=== PATIENT | female | born 1965 | race Caucasian/White ===

== ENCOUNTER 2018-12-16 08:15 | Day surgery (SDC) | payer MEDICAID ==
[2018-12-16] VITALS (9 sets, daily range): BP systolic 110–166; BP diastolic 64–75
[~2018-12-16] VITALS: Ht 163.8 cm; Wt 79.0 kg
[~2018-12-16 08:15] MED LIST: NO HOME MEDS
[2018-12-16] MEDS ORDERED: ceFAZolin 2gm in dextrose, iso 100 ML IV ONE (08:55)
[2018-12-16] MEDS ORDERED: famotidine 20mg tablet PO ONE (09:00)
[2018-12-16] MEDS ORDERED: ringers solution, lacted 1,000 ML IV SCH (09:00)
[2018-12-16 09:27] LABS: BASOPHILS % (AUTO) 0.5 % (0-1); EOSINOPHILS # (AUTO) 0.3 X10'3 (0-0.9); EOSINOPHILS % (AUTO) 5.2 % (0-6); LYMPHOCYTES # (AUTO) 2.1 X10'3 (1.1-4.8); LYMPHOCYTES % (AUTO) 33.1 % (21-51); MEAN CORPUSCULAR HEMOGLOBIN 29.2 PG (27.0-31.0); MEAN CORPUSCULAR HGB CONC 33.6 g/dL (33.0-36.5); MEAN CORPUSCULAR VOLUME 86.9 FL (78-98); MEAN PLATELET VOLUME 7.2 FL (7.4-10.4); MONOCYTES # (AUTO) 0.4 X10'3 (0-0.9); MONOCYTES % (AUTO) 6.2 % (2-12); NEUTROPHILS # (AUTO) 3.5 X10'3 (1.8-7.7); PRE OP HEMATOCRIT 40.2 % (35.0-45.0); PRE OP HEMOGLOBIN 13.5 g/dL (12.0-16.0); PRE OP PLATELET COUNT 292 X10'3 (140-440); RED BLOOD COUNT 4.62 X10'6 (4.20-5.60); RED CELL DISTRIBUTION WIDTH 14.1 % (11.5-14.5)
[2018-12-16] MEDS ORDERED: LURA80TA3 PO (09:34)
[2018-12-16] MEDS ORDERED: TRAZ-219 PO (09:34)
[2018-12-16 09:41] LABS: ALBUMIN 3.3 G/DL (3.4-5.0); ALBUMIN/GLOBULIN RATIO 0.8 (1.1-1.5); ALKALINE PHOSPHATASE 75 IU/L (46-116); BLOOD UREA NITROGEN 14 MG/DL (7-18); BUN/CREATININE RATIO 12.2 (6.6-38.0); CALCIUM 8.9 MG/DL (8.5-10.1); CHLORIDE 106 MMOL/L (99-107); CREATININE 1.15 MG/DL (0.40-0.90); PRE OP ALT 18 U/L (30-65); PRE OP ANION GAP 8 (8-16); PRE OP AST 10 U/L (10-37); PRE OP BILIRUB, TOTAL 0.5 MG/DL (0.0-1.0); PRE OP GLUCOSE 97 MG/DL (70-104); PRE OP POTASSIUM 3.9 MMOL/L (3.4-5.1); PRE OP SODIUM 142 MMOL/L (135-145); TOTAL CARBON DIOXIDE 28.3 MMOL/L (24-32); TOTAL PROTEIN 7.6 G/DL (6.4-8.2); eGFR 50 ML/MIN
[2018-12-16 09:45] LABS: PRE OP PROTIME 10.1 SECONDS (9.0-12.0)
[2018-12-16 12:06] LABS: CLARITY,URINE CLOUDY (Clear); COLOR,URINE YELLOW (Yellow); GLUCOSE, URINE NEGATIVE (Neg); KETONES,URINE NEGATIVE (Neg); LEUKOCYTE ESTERASE ,URINE NEGATIVE (Neg); NITRITES, URINE NEGATIVE (Neg); OCCULT BLOOD,URINE NEGATIVE (Neg); PH,URINE 5.5 (4.8-8.0); PROTEIN,URINE NEGATIVE (Neg); UROBILINOGEN,URINE 0.2 E.U/dL (0.2-1.0)
[2018-12-16 12:10] LABS: UA COLLECTION TYPE CLN CATCH MIDSTREAM
[2018-12-16 12:12] LABS: MUCUS STRANDS FEW /LPF (Neg); SQUAMOUS EPITHELIAL CELL,UR MANY /LPF (FEW)
[2018-12-16 12:18] LABS: BACTERIA,URINE FEW /HPF (Neg)
[2018-12-16 12:19] LABS: YEAST MODERATE /HPF (NEGATIVE)
[2018-12-16 12:21] LABS: RBC,URINE NONE SEEN /HPF (0-2); WBC,URINE 0-4 /HPF (0-4)
[2018-12-16] MEDS ORDERED: sevoflurane 250ml liquid IH ONE (13:00)
[2018-12-16] MEDS ORDERED: midazolam 2 mg/2 ml injection ONE (13:03)
[2018-12-16] MEDS ORDERED: fentaNYL /PF 50mcg/ml 5ml ampule ONE (13:03)
[2018-12-16] MEDS ORDERED: BUPIVAcaine/PF 2.5 mg/ml (0.25%) 30ml vial ONE (13:14)
[2018-12-16] MEDS ORDERED: gentamicin 40 MG/1 ML inj ONE (13:30)
[2018-12-16] MEDS ORDERED: clindamycin phosphate 150mg/ml inj. ONE (13:32)
--- NOTE | 2018-12-16 13:53 | NUR ---
Received from OR via [facility], accompanied by Anesthesiologist DR CASTLE and report given by Anesthesiologist. PT DROWSY, NO S/S OF DISTRESS/DISCOMFORT, ABDOMEN W/ISLAND DRSG COVERING INCISION CDI, SIRISHA TO BULB SUCTION, SMALL AMT OF S/S DRAINAGE. Addendum: 12/16/18 at 1435 by Aimee Coleman RN Amended: Links added.
[2018-12-16] MEDS ORDERED: LIDOcaine 2% (20mg/ml) 5ml vial ONE (14:09)
[2018-12-16] MEDS ORDERED: ondansetron/PF 4mg/2ml inj ONE (14:09)
[2018-12-16] MEDS ORDERED: ePHEDrine 50MG/ML INJ. ONE (14:09)
[2018-12-16] MEDS ORDERED: propofol inj 20 ML IV ONE (14:09)
[2018-12-16] MEDS ORDERED: dexamethasone sod phosphate 4mg/ml inj. ONE (14:09)
--- NOTE | 2018-12-16 15:13 | NUR ---
D/C INSTRUCTIONS GIVEN AND GONE OVER W/PT AND PTS FATHER, BOTH VERBALIZE UNDERSTANDING, PT DC/D TO HOME VIA W/C TO PRIVATE VEHICLE W/O INCIDENT. Addendum: 12/16/18 at 1650 by Aimee Coleman RN Amended: Links added.
== END 2018-12-16 15:13 | disposition home or self-care (01) ==
LOC: PAS 08:15
PROVIDERS: ATTEND Surgery
DX: T81.30XA Disruption of wound, unspecified, initial encounter (principal); Y83.8 Other surgical procedures as the cause of abnormal reaction of the patient, or of later complication, without mention of misadventure at the time of the procedure; Y92.89 Other specified places as the place of occurrence of the external cause; Z88.8 Allergy status to other drugs, medicaments and biological substances; F41.9 Anxiety disorder, unspecified; F32.9 Major depressive disorder, single episode, unspecified; Z85.038 Personal history of other malignant neoplasm of large intestine; Z87.891 Personal history of nicotine dependence; Z90.49 Acquired absence of other specified parts of digestive tract; Z86.19 Personal history of other infectious and parasitic diseases; Z79.899 Other long term (current) drug therapy; Z79.01 Long term (current) use of anticoagulants
CPT/HCPCS: 13160; 36415; 71045; 80053; 81001; 85025; 85610; 85730; 87070; 87075; 87077; 87186; 93005; J1100; J1580; J2001; J2250; J2405; J2704; J3010; J3490; A4618; A6449; A7000; J7120

== ENCOUNTER 2021-07-17 05:47 | Inpatient (IN) | payer MEDICAID ==
[2021-07-13 15:38] LABS: BASOPHILS # (AUTO) 0.1 X10'3 (0-0.2); BASOPHILS % (AUTO) 0.7 % (0-1); EOSINOPHILS # (AUTO) 0.2 X10'3 (0-0.9); EOSINOPHILS % (AUTO) 2.2 % (0-6); LYMPHOCYTES # (AUTO) 3.4 X10'3 (1.1-4.8); LYMPHOCYTES % (AUTO) 39.5 % (21-51); MEAN CORPUSCULAR HEMOGLOBIN 30.1 PG (27.0-31.0); MEAN CORPUSCULAR HGB CONC 33.9 g/dL (33.0-36.5); MEAN CORPUSCULAR VOLUME 88.9 FL (78-98); MEAN PLATELET VOLUME 7.1 FL (7.4-10.4); MONOCYTES # (AUTO) 0.5 X10'3 (0-0.9); MONOCYTES % (AUTO) 5.8 % (2-12); NEUTROPHILS # (AUTO) 4.4 X10'3 (1.8-7.7); NEUTROPHILS % (AUTO) 51.8 % (42-75); PRE OP HEMATOCRIT 42.8 % (35.0-45.0); PRE OP HEMOGLOBIN 14.5 g/dL (12.0-16.0); PRE OP PLATELET COUNT 348 X10'3 (140-440); RED BLOOD COUNT 4.81 X10'6 (4.20-5.60)
[2021-07-13 15:39] LABS: CLARITY,URINE SLIGHTLY CLOUDY (Clear); COLOR,URINE YELLOW (Yellow); GLUCOSE, URINE NEGATIVE (Neg); KETONES,URINE NEGATIVE (Neg); LEUKOCYTE ESTERASE ,URINE NEGATIVE (Neg); NITRITES, URINE NEGATIVE (Neg); OCCULT BLOOD,URINE NEGATIVE (Neg); PROTEIN,URINE NEGATIVE (Neg); UROBILINOGEN,URINE 0.2 E.U/dL (0.2-1.0)
[2021-07-13 15:45] LABS: UA COLLECTION TYPE CLN CATCH MIDSTREAM
[2021-07-13 15:48] LABS: BACTERIA,URINE 3+ /HPF (Neg); CAL OXALATE CRYSTALS 2+ /HPF (NEGATIVE); RBC,URINE NONE SEEN /HPF (0-2); SQUAMOUS EPITHELIAL CELL,UR MANY /LPF (FEW); WBC,URINE 30-50 /HPF (0-4)
[2021-07-13 15:49] LABS: MUCUS STRANDS NONE SEEN /LPF (Neg)
[2021-07-13 15:50] LABS: PRE OP PROTIME 10.1 SECONDS (9.0-12.0)
[2021-07-13 15:53] LABS: ALBUMIN 3.4 G/DL (3.4-5.0); ALBUMIN/GLOBULIN RATIO 0.8 (1.1-1.5); ALKALINE PHOSPHATASE 87 IU/L (46-116); BLOOD UREA NITROGEN 14 MG/DL (7-18); BUN/CREATININE RATIO 13.9 (6.6-38.0); CALCIUM 8.9 MG/DL (8.5-10.1); CHLORIDE 103 MMOL/L (99-107); CREATININE 1.01 MG/DL (0.40-0.90); PRE OP ALT 31 U/L (30-65); PRE OP ANION GAP 9 (8-16); PRE OP AST 17 U/L (10-37); PRE OP BILIRUB, TOTAL 0.5 MG/DL (0.0-1.0); PRE OP GLUCOSE 85 MG/DL (70-104); PRE OP POTASSIUM 3.8 MMOL/L (3.4-5.1); PRE OP SODIUM 139 MMOL/L (135-145); TOTAL CARBON DIOXIDE 27.1 MMOL/L (24-32); TOTAL PROTEIN 7.8 G/DL (6.4-8.2); eGFR 57 ML/MIN
[2021-07-17] VITALS (24 sets, daily range): BP systolic 104–169; BP diastolic 47–120
[~2021-07-17] VITALS: Ht 165.1 cm; Wt 93.2 kg
[~2021-07-17 05:47] MED LIST changes: +CLON-330 PO; +LURA80TA2 PO; -NO HOME MEDS; +cefazolin/dext.iso 2gm/50ml IV ONE; +famotidine 20mg tablet PO ONE; +ringers solution, lacted 1,000 ML IV SCH
[2021-07-17] MEDS ORDERED: BUPIVAcaine 0.5% inj/PF 30 ML ONE (06:42)
[2021-07-17] MEDS ORDERED: INDOCYANINE GREEN 25 MG/10 ML VIAL IV ONE (07:20)
[2021-07-17] MEDS ORDERED: morphine 2 MG/ML inj. syringe IV PRN (07:50)
[2021-07-17] MEDS ORDERED: ondansetron/PF 4mg/2ml inj IV PRN ×2 (07:50→14:00)
[2021-07-17] MEDS ORDERED: labetalol 20mg/4ml (5mg/ml) syringe IV PRN (07:50)
[2021-07-17] MEDS ORDERED: hydrALAZINE 20mg/ml inj. IV PRN (07:50)
[2021-07-17] MEDS ORDERED: morphine 4 MG/ML inj SYRINge IV PRN (07:50)
[2021-07-17] MEDS ORDERED: meperidine/PF 25mg/ml syringe IV PRN ×2 (07:50)
[2021-07-17] MEDS ORDERED: acetaminophen 1,000mg/100ml IV 100 ML IV PRN (07:50)
[2021-07-17] MEDS ORDERED: proCHLORperazine 10 MG/2 ml inj IV PRN (07:50)
[2021-07-17] MEDS ORDERED: ringers solution, lacted 1,000 ML IV SCH (07:50)
[2021-07-17] MEDS ORDERED: sevoflurane 250ml liquid IH ONE (08:42)
[2021-07-17] MEDS ORDERED: midazolam 1 mg/ML 2ml injection ONE (08:47)
[2021-07-17] MEDS ORDERED: fentaNYL /PF 50mcg/ml 5ml ampule ONE (08:47)
[2021-07-17] MEDS ORDERED: LIDOcaine 2% (20mg/ml) 5ml vial ONE (09:09)
[2021-07-17] MEDS ORDERED: rocuronium 10mg/ml inj IV ONE ×2 (09:09→11:18)
[2021-07-17] MEDS ORDERED: propofol inj 20 ML IV ONE (09:09)
[2021-07-17] MEDS ORDERED: ePHEDrine 50MG/ML INJ. ONE (09:10)
[2021-07-17] MEDS ORDERED: dexamethasone sod phosphate 4mg/ml inj. ONE (09:20)
[2021-07-17] MEDS ORDERED: ondansetron/PF 4mg/2ml inj ONE (09:20)
[2021-07-17] MEDS ORDERED: morphine 4 MG/ML inj SYRINge ONE (12:19)
[2021-07-17] MEDS ORDERED: ceFAZolin 1000mg inj ONE (12:21)
[2021-07-17] MEDS ORDERED: sugammadex 200mg/2ml injection IV ONE (12:24)
--- NOTE | 2021-07-17 12:50 | NUR ---
Received from OR via [facility] , accompanied by Anesthesiologist DR ENGLISH and report given by Anesthesiolgist. PT PRESENTS WITH PIV 20G LEFT AC, VSS. Addendum: 07/17/21 at 1312 by Jaye Olsen RN, RN Amended: Links added.
[2021-07-17] MEDS: meperidine/PF 25mg/ml syringe IV PRN ×4 (12:55→15:09)
--- NOTE | 2021-07-17 15:30 | NUR ---
Report called to receiving nurse IDA RODRIGUEZ. Transferred viaHOSPITAL BED TO ROOM 350A. BED IN LOW LOCKED POSITION WITH CALL LIGHT AND TV IN REACH. PT Belongings TO ROOM 350A DENTURES UPPER AND LOWER WITH 1 PT BELONGING BAG, Special Issues communicated to receiving nurse. Addendum: 07/17/21 at 1541 by Jaye Olsen RN, RN Amended: Links added.
[2021-07-17] MEDS: ceFAZolin 1GM/D5W- ADD-VANTAGE 50 ML IV SCH ×2 (16:09→22:46)
--- NOTE | 2021-07-17 17:00 | NUR ---
Provided patient education regarding incentive spirometry use. Patient was able to return demonstration. Patient verbalized understanding of use and frequency (q1hr). No questions regarding use at this time.
[2021-07-17] MEDS: HYDROmorphone inj. 0.5 MG/0.5 ML DISP.SYRIN IV PRN ×2 (17:55→22:46)
--- NOTE | 2021-07-17 18:15 | NUR ---
Student documentation: I have reviewed all interventions, assessments performed and documented by Dolores SIMEON. Student Medication Administration: For all medication-pass' in the time frame of 5168-3359, all medication were reviewed, dispensed, administered and documented per hospital policy by Dolores SIMEON.
--- NOTE | 2021-07-17 18:17 | NUR ---
Problems reprioritized. Patient report given, questions answered & plan of care reviewed with Heavenly RODRIGUEZ.
--- NOTE | 2021-07-17 18:32 | NUR ---
Patient in room [facility]. I have received report from Shira RODRIGUEZ and had the opportunity to ask questions and assume patient care.
[2021-07-17] MEDS: lurasidone 20mg tablet PO SCH (20:32)
[2021-07-17] MEDS: cloNIDine 0.1 mg tablet PO SCH (20:33)
[2021-07-17] MEDS: HYDROcodone/acetaminophen 10/325mg tab PO PRN (20:34)
[2021-07-17] MEDS: potassium CL 20mEq in D5-1/2NS 1,000 ML IV SCH ×2 (20:35→22:00)
[2021-07-18] VITALS: BP 130/84
[2021-07-18 04:00] VITALS: BP 133/74
[2021-07-18] MEDS: potassium CL 20mEq in D5-1/2NS 1,000 ML IV SCH ×3 (04:17→22:00)
[2021-07-18] MEDS: HYDROmorphone inj. 0.5 MG/0.5 ML DISP.SYRIN IV PRN ×2 (04:17→13:07)
[2021-07-18 06:13] LABS: BASOPHILS % (AUTO) 0.2 % (0-1); EOSINOPHILS % (AUTO) 0 % (0-6); HEMATOCRIT 40.5 % (35.0-45.0); HEMOGLOBIN 13.5 g/dl (12.0-16.0); LYMPHOCYTES # (AUTO) 1.2 X10'3 (1.1-4.8); LYMPHOCYTES % (AUTO) 7.9 % (21-51); MEAN CORPUSCULAR HEMOGLOBIN 29.7 PG (27.0-31.0); MEAN CORPUSCULAR HGB CONC 33.3 g/dL (33.0-36.5); MEAN CORPUSCULAR VOLUME 89.2 FL (78-98); MEAN PLATELET VOLUME 7.6 FL (7.4-10.4); MONOCYTES # (AUTO) 0.7 X10'3 (0-0.9); MONOCYTES % (AUTO) 4.4 % (2-12); NEUTROPHILS # (AUTO) 13.4 X10'3 (1.8-7.7); NEUTROPHILS % (AUTO) 87.5 % (42-75); PLATELET COUNT 358 X10'3 (140-440); RED BLOOD COUNT 4.54 X10'6 (4.20-5.60); RED CELL DISTRIBUTION WIDTH 14.2 % (11.5-14.5); WHITE BLOOD COUNT 15.3 X10'3 (4.5-11.0)
--- NOTE | 2021-07-18 06:29 | NUR ---
Problems reprioritized. Patient report given, questions answered & plan of care reviewed with Hamzah RODRIGUEZ.
--- NOTE | 2021-07-18 06:53 | NUR ---
Problems reprioritized. Patient report received, questions answered & plan of care reviewed with KODAK RODRIGUEZ.
[2021-07-18 07:00] VITALS: BP 112/84
[2021-07-18] MEDS: HYDROcodone/acetaminophen 10/325mg tab PO PRN ×2 (07:16→17:12)
[2021-07-18] MEDS: ceFAZolin 1GM/D5W- ADD-VANTAGE 50 ML IV SCH (07:16)
[2021-07-18 12:05] VITALS: BP 135/70
--- NOTE | 2021-07-18 13:51 | NUR ---
Patient is upset because DR John wants her to stay for another day, she needs to pass gas or have a BM before she can go home
--- NOTE | 2021-07-18 18:31 | NUR ---
Problems reprioritized. Patient report given, questions answered & plan of care reviewed with KODAK RODRIGUEZ
[2021-07-18 20:00] VITALS: BP 161/91
--- NOTE | 2021-07-18 20:30 | NUR ---
Pt states that she is upset, that she wants to be left alone. Refused medications. Pt has no signs of distress, will continue to monitor.
[2021-07-18] MEDS: lurasidone 20mg tablet PO SCH (21:00)
[2021-07-18] MEDS: cloNIDine 0.1 mg tablet PO SCH (21:00)
--- NOTE | 2021-07-18 22:00 | NUR ---
Pt pulled out IV, refuses to have it replaced even after education regarding IV fluids and IV pain medications.
[2021-07-19] VITALS (10 sets, daily range): BP systolic 107–205; BP diastolic 76–108
--- NOTE | 2021-07-19 | NUR ---
Pt refused midnight vitals
[2021-07-19] MEDS: HYDROcodone/acetaminophen 10/325mg tab PO PRN ×3 (01:15→13:43)
--- NOTE | 2021-07-19 05:37 | NUR ---
Pt came to nurses station in an agitated state, upset regarding a supposed encounter the day prior that had already been addressed by staff with family. Pt known to have bipolar disorder and per family has had emotional outbursts similar to this event in the past. Pts daughter was called and notified of pt current emotional state, to which she advised that she had been concerned when she was visiting during the evening that the patient was having an episode. Daughter will be coming up to stay with the patient.
[2021-07-19] MEDS: potassium CL 20mEq in D5-1/2NS 1,000 ML IV SCH ×2 (06:00→17:59)
--- NOTE | 2021-07-19 06:30 | NUR ---
Family at bedside with pt
--- NOTE | 2021-07-19 06:43 | NUR ---
Problems reprioritized. Patient report given, questions answered & plan of care reviewed with Court RODRIGUEZ.
--- NOTE | 2021-07-19 06:50 | NUR ---
Patient in room [facility]. I have received report from JENNIFER Burdick and had the opportunity to ask questions and assume patient care.
--- NOTE | 2021-07-19 07:54 | NUR ---
Attempted to call Dr. Dunbar about patient, did not answer. Left a voicemail.
[2021-07-19] MEDS ORDERED: lurasidone 20mg tablet PO SCH ×2 (08:05→21:00)
[2021-07-19] MEDS: lurasidone 20mg tablet PO SCH (08:07)
[2021-07-19] MEDS ORDERED: lurasidone 20mg tablet PO ONE (08:09)
--- NOTE | 2021-07-19 08:30 | NUR ---
Spoke with Dr. Maya, patient agreeable to take latuda now PM dose to be given NOW, pharmacy called. Asked if he would like patient to have IV as she refused one last night, IV placed per MD orders patient tolerated well. No n/v at this time, patient is in pain norco given.
--- NOTE | 2021-07-19 08:51 | NUR ---
Patients heart rate to be noted in the 160s after ambulating, history of afib, ekg done shows afib with RVR in the 150s.
--- NOTE | 2021-07-19 09:33 | NUR ---
Called Dr. Maya approx 1 hr ago regarding patients heart rate and rhythm on EKG, no answer left message and have not received a call back at this time.
--- NOTE | 2021-07-19 09:45 | NUR ---
ATTEMPTED TP C Addendum: 07/19/21 at 0946 by Court Ramos RN TO CALL DR LOVE REGARDING AFIB WITH RVR, NO ANSWER
--- NOTE | 2021-07-19 10:23 | NUR ---
patient reported pain as an 11, took in dilaudid and patient stated she was fine and did not need it. wasted in [facility], dr metcalf still has not responded to calls x2. patient stable, in no acute distress at this time heart rate trending in the 130s.
--- NOTE | 2021-07-19 10:38 | NUR ---
Patient and daughter reports passage of flatus
[2021-07-19 11:20] LABS: BASOPHILS # (AUTO) 0.1 X10'3 (0-0.2); BASOPHILS % (AUTO) 0.5 % (0-1); EOSINOPHILS # (AUTO) 0.3 X10'3 (0-0.9); EOSINOPHILS % (AUTO) 2.1 % (0-6); HEMATOCRIT 40.8 % (35.0-45.0); HEMOGLOBIN 13.6 g/dl (12.0-16.0); LYMPHOCYTES # (AUTO) 2.1 X10'3 (1.1-4.8); LYMPHOCYTES % (AUTO) 16.3 % (21-51); MEAN CORPUSCULAR HEMOGLOBIN 29.7 PG (27.0-31.0); MEAN CORPUSCULAR HGB CONC 33.5 g/dL (33.0-36.5); MEAN CORPUSCULAR VOLUME 88.7 FL (78-98); MEAN PLATELET VOLUME 7.3 FL (7.4-10.4); MONOCYTES # (AUTO) 0.8 X10'3 (0-0.9); MONOCYTES % (AUTO) 6.5 % (2-12); NEUTROPHILS # (AUTO) 9.7 X10'3 (1.8-7.7); NEUTROPHILS % (AUTO) 74.6 % (42-75); PLATELET COUNT 323 X10'3 (140-440); RED BLOOD COUNT 4.59 X10'6 (4.20-5.60); RED CELL DISTRIBUTION WIDTH 14.4 % (11.5-14.5)
--- NOTE | 2021-07-19 11:54 | NUR ---
Attempted to call Dr. Dunbar regarding patient; no answer again.
[2021-07-19] MEDS: HYDROmorphone inj. 0.5 MG/0.5 ML DISP.SYRIN IV PRN (12:29)
--- NOTE | 2021-07-19 12:54 | NUR ---
Patient came to RN station crying in pain, dilaudid given. Heart rate checked and was 160, made decision to call a rapid response as MD did not return any of my calls. MD called during rapid response and came to the floor. Orders received for stat cmp, trop, and bnp with transfer to telemetry, RN air cargo ground operations supervisor notified.
--- NOTE | 2021-07-19 13:00 | NUR ---
agree with orientee documentation
[2021-07-19 13:31] LABS: ALANINE AMINOTRANSFERASE 32 U/L (12-78); ALBUMIN 3.3 G/DL (3.4-5.0); ALBUMIN/GLOBULIN RATIO 0.8 (1.1-1.5); ALKALINE PHOSPHATASE 83 IU/L (46-116); ANION GAP 11 (8-16); ASPARTATE AMINO TRANSFERASE 40 U/L (10-37); BLOOD UREA NITROGEN 12 MG/DL (7-18); BUN/CREATININE RATIO 11.1 (6.6-38.0); CALCIUM 8.2 MG/DL (8.5-10.1); CHLORIDE 100 MMOL/L (99-107); CREATININE 1.08 MG/DL (0.40-0.90); GLUCOSE 133 MG/DL (70-104); POTASSIUM 3.7 MMOL/L (3.5-5.1); SODIUM 137 MMOL/L (135-145); TOTAL PROTEIN 7.7 G/DL (6.4-8.2); eGFR 53 ML/MIN
--- NOTE | 2021-07-19 13:38 | NUR ---
Attempted to call patient report; RN on break and will call back upon return
--- NOTE | 2021-07-19 13:58 | NUR ---
Called report to Amalia RODRIGUEZ on telemetry
[2021-07-19 14:06] LABS: MAGNESIUM 1.9 MG/DL (1.5-2.4)
--- NOTE | 2021-07-19 14:18 | NUR ---
Patient transfered to [facility] with no complications
--- NOTE | 2021-07-19 14:25 | NUR ---
Spoke with son Richy
--- NOTE | 2021-07-19 14:30 | NUR ---
Dr. Dunbar updated with patient's current vitals and 6/10 chest pain. Orders placed for troponin q8 x3, lasix 20mg IV, Morphine 4mg, hydralazine 10mg IV, and to decrease fluids IV to 50ml/hr. Dr. Dunbar came bedsides shortly after.
[2021-07-19] MEDS ORDERED: furosemide 20 MG/2 ML vial IV ONE (14:40)
[2021-07-19] MEDS ORDERED: hydrALAZINE 20mg/ml inj. IV PRN (14:45)
[2021-07-19] MEDS: morphine 4 MG/ML inj SYRINge IV PRN (15:01)
[2021-07-19] MEDS ORDERED: LORazepam 2 mg/ml vial IV PRN (15:15)
--- NOTE | 2021-07-19 15:20 | NUR ---
Patient felt dizzy and was short of breath while getting up to the bedside commode. Heart rate increased to [address] Reece made aware. Orders placed for metoprolol, CTA, ativan, and states to not give hydralazine.
[2021-07-19] MEDS ORDERED: iohexol 350MG/ML 100ml bottle IV ONE ×2 (15:22→16:26)
[2021-07-19] MEDS: metoprolol tartrate 1mg/ml inj IV SCH ×3 (15:25→16:43)
--- NOTE | 2021-07-19 18:22 | NUR ---
Problems reprioritized. Patient report given, questions answered & plan of care reviewed with Tiara RODRIGUEZ.
[2021-07-19] MEDS ORDERED: lurasidone 60mg tablet PO SCH (21:00)
[2021-07-19] MEDS: cloNIDine 0.1 mg tablet PO SCH (21:31)
[2021-07-19] MEDS: carvedilol 6.25mg tablet PO SCH (21:31)
[2021-07-20] MEDS: morphine 4 MG/ML inj SYRINge IV PRN (00:07)
--- NOTE | 2021-07-20 00:09 | NUR ---
Unable to scan Morphine 4mg iv, co-signed by Radha RODRIGUEZ. [facility] Pharmacist notified
[2021-07-20 02:00] VITALS: BP 142/90
[2021-07-20] MEDS: HYDROmorphone inj. 0.5 MG/0.5 ML DISP.SYRIN IV PRN (03:36)
[2021-07-20 06:00] VITALS: BP 140/83
[2021-07-20 06:16] LABS: BASOPHILS % (AUTO) 0.4 % (0-1); EOSINOPHILS # (AUTO) 0.4 X10'3 (0-0.9); EOSINOPHILS % (AUTO) 5.1 % (0-6); HEMATOCRIT 35.9 % (35.0-45.0); HEMOGLOBIN 12.1 g/dl (12.0-16.0); LYMPHOCYTES # (AUTO) 1.7 X10'3 (1.1-4.8); LYMPHOCYTES % (AUTO) 19.1 % (21-51); MEAN CORPUSCULAR HEMOGLOBIN 30.1 PG (27.0-31.0); MEAN CORPUSCULAR HGB CONC 33.7 g/dL (33.0-36.5); MEAN CORPUSCULAR VOLUME 89.2 FL (78-98); MEAN PLATELET VOLUME 7.5 FL (7.4-10.4); MONOCYTES # (AUTO) 0.7 X10'3 (0-0.9); MONOCYTES % (AUTO) 8.4 % (2-12); NEUTROPHILS # (AUTO) 5.9 X10'3 (1.8-7.7); PLATELET COUNT 287 X10'3 (140-440); RED BLOOD COUNT 4.03 X10'6 (4.20-5.60); RED CELL DISTRIBUTION WIDTH 14.6 % (11.5-14.5); WHITE BLOOD COUNT 8.8 X10'3 (4.5-11.0)
[2021-07-20] MEDS: carvedilol 6.25mg tablet PO SCH (08:22)
[2021-07-20] MEDS: HYDROcodone/acetaminophen 10/325mg tab PO PRN (08:27)
[2021-07-20] MEDS: potassium CL 20mEq in D5-1/2NS 1,000 ML IV SCH (09:00)
[2021-07-20 11:00] VITALS: BP 120/50
[2021-07-20] MEDS ORDERED: CARV-49 PO (11:43)
--- NOTE | 2021-07-20 13:07 | NUR ---
PAGER ID: [phone] MESSAGE: [phone] Vivian Santos- Requesting [place] for discharge to [facility]. Julissa [phone]
--- NOTE | 2021-07-20 13:39 | NUR ---
PATIENT DISCHARGED WITH INSTRUCTION, VERBALIZED UNDERSTANDING, FOLLOW UP WITH PCP PER DR MASON. IV REMOVED, PT LEFT WITH FATHER IN PRIVATE VEHICLE.
== END 2021-07-20 13:02 | disposition home or self-care (01) | DRG 227 ==
LOC: PAS 05:47 → SUR 3N 13:59 → OBSVTOIN 13:59 → SUR 3N 16:55 → UNDOADMOB 16:55 → PCU 3S 07-19 15:18
PROVIDERS: ADMIT Surgery; ATTEND Surgery
PROC: 0FT44ZZ Resection of Gallbladder, Percutaneous Endoscopic Approach (ICD-10-PCS; 2021-07-17)
PROC: 8E0W4CZ Robotic Assisted Procedure of Trunk Region, Percutaneous Endoscopic Approach (ICD-10-PCS; 2021-07-17)
PROC: 0DNW4ZZ Release Peritoneum, Percutaneous Endoscopic Approach (ICD-10-PCS; 2021-07-17)
PROC: 0WUF4JZ Supplement Abdominal Wall with Synthetic Substitute, Percutaneous Endoscopic Approach (ICD-10-PCS; principal; 2021-07-17 08:42)
PROC: B32T1ZZ Computerized Tomography (CT Scan) of Left Pulmonary Artery using Low Osmolar Contrast (ICD-10-PCS; 2021-07-19)
PROC: B3201ZZ Computerized Tomography (CT Scan) of Thoracic Aorta using Low Osmolar Contrast (ICD-10-PCS; 2021-07-19)
PROC: B32S1ZZ Computerized Tomography (CT Scan) of Right Pulmonary Artery using Low Osmolar Contrast (ICD-10-PCS; 2021-07-19)
DX: K43.2 Incisional hernia without obstruction or gangrene (principal); E66.9 Obesity, unspecified; K80.20 Calculus of gallbladder without cholecystitis without obstruction; F31.9 Bipolar disorder, unspecified; F41.9 Anxiety disorder, unspecified; I48.0 Paroxysmal atrial fibrillation; I10 Essential (primary) hypertension; Z20.822 Contact with and (suspected) exposure to COVID-19; K66.0 Peritoneal adhesions (postprocedural) (postinfection); R00.0 Tachycardia, unspecified; R45.1 Restlessness and agitation; Z68.34 Body mass index [BMI] 34.0-34.9, adult; Z88.8 Allergy status to other drugs, medicaments and biological substances; Z79.899 Other long term (current) drug therapy
CPT/HCPCS: 36415; 71046; 71275; 74176; 80053; 81001; 82948; 83735; 83880; 84484; 85025; 85610; 85730; 86885; 86900; 86901; 87635; 93005; A4215; A4618; C1781; C9803; G0378; J0131; J0690; J1100; J1170; J1940; J2060; J2175; J2250; J2270; J2405; J2704; J3010; J3480; J3490; J7120; Q9967; S0020